=== PATIENT | female | born 1975 | race Caucasian/White ===

== ENCOUNTER 2016-11-29 23:50 | Emergency (ER) | payer OTHER ==
[2016-11-29 23:54] VITALS: BP 107/58; PULSE 76; TEMP 97.4; BMI 25.6
[2016-11-30 01:05] LABS: URINE APPEARANCE CLOUDY; URINE BILIRUBIN NEGATIVE (NEGATIVE); URINE BLOOD NEGATIVE (NEGATIVE); URINE COLOR YELLOW; URINE GLUCOSE (UA) NEGATIVE (NEGATIVE); URINE KETONE NEGATIVE (NEGATIVE); URINE NITRITE POSITIVE (NEGATIVE); URINE UROBILINOGEN 2.0 E.U/dl E.U./dl (0.2-1.0)
[2016-11-30] MEDS ORDERED: ACETAMINOPHEN 325 MG TABLET (FP) PO ONE (01:15)
[2016-11-30 01:22] LABS: URINE LEUK ESTERASE 3+ (NEGATIVE); URINE PROTEIN 2+ (NEGATIVE)
[2016-11-30 01:25] LABS: URINE BACTERIA MANY /hpf (NONE SEEN); URINE MUCUS FEW; URINE RBC 8 /hpf (0-3); URINE WBC 674 /hpf (3-5)
[2016-11-30] MEDS ORDERED: PHENAZOPYRIDINE HCL 100 MG TABLET (FP) PO ONE (01:42)
[2016-11-30] MEDS ORDERED: KETOROLAC TROMETHAMINE 30 MG/1 ML VIAL IM ONE (01:42)
[2016-11-30] MEDS ORDERED: LEVOFLOXACIN 500 MG TABLET (FP) PO ONE (01:43)
--- NOTE | 2016-11-30 01:50 | PDOC ---
History of Present Illness - General History Source: Patient Exam Limitations: No Limitations <SinaiUli - Last Filed: 11/30/16 01:52> - General History Source: Patient Exam Limitations: No Limitations - History of Present Illness Initial Comments: 11/30/16 01:54 The patient is a 41 year old female, with no significant past medical history, who presents to the emergency department with pelvic pain, frequency, dysuria and neck pain for 3 days. She notes that the pain has been worsening during this time period. She describes her pain as localized in the pelvic region slightly to the left. She reports that her neck pain is localized on the left side, ranging from mild to moderate, without radiation. She states that her pain is exacerbated when she turns her neck. The patient denies chest pain, shortness of breath, headache and dizziness. Denies fever, chills, nausea, vomit, diarrhea and constipation. Denies urgency and hematuria. Allergies: None Past surgical history: None reported Social history: Alcohol use occasionally. No tobacco or drug use reported <Jorge Hale - Last Filed: 11/30/16 01:55> - General Chief Complaint: Urinary Problem Stated Complaint: NECK PAIN Time Seen by Provider: 11/30/16 00:26 Past History - Reproductive History Is Patient Now?: No Cervical CA: No Dysfunctional Uterine Bleeding: No Ectopic : No Endometrial CA: No Polycystic Ovaries: No Tubal Ligation: No - Psycho/Social/Smoking Cessation Hx Anxiety: No Suicidal Ideation: No Smoking Status: No Smoking History: Never smoked Have you smoked in the past 12 months: No Number of Cigarettes Smoked Daily: 0 Information on smoking cessation initiated: No Hx Alcohol Use: No Drug/Substance Use Hx: No <Uli Rawls - Last Filed: 11/30/16 01:52> <Jorge Hale - Last Filed: 11/30/16 01:55> - Past Medical History Allergies/Adverse Reactions: Allergies Allergy/AdvReac Type Severity Reaction Status Date / Time No Known Allergies Allergy Verified 11/29/16 23:51 Home Medications: Ambulatory Orders Ciprofloxacin [Cipro -] 500 mg PO Q12H #14 tablet 11/30/16 Cyclobenzaprine HCl [Flexeril -] 10 mg PO TID PRN #21 tablet 11/30/16 Naproxen [Naprosyn -] 500 mg PO BID PRN #20 tablet 11/30/16 Phenazopyridine HCl [Pyridium] 200 mg PO Q8H PRN #5 tablet 11/30/16 Review of Systems - Review of Systems Able to Perform ROS?: Yes Comments:: 11/30/16 01:55 GENERAL/CONSTITUTIONAL: No fever or chills. No weakness. HEAD, EYES, EARS, NOSE AND THROAT: No change in vision. No ear pain or discharge. No sore throat. CARDIOVASCULAR: No chest pain or shortness of breath RESPIRATORY: No cough, wheezing, or hemoptysis. GASTROINTESTINAL: No nausea, vomiting, diarrhea or constipation. GENITOURINARY: +Pelvic pain, dysuria and frequency. MUSCULOSKELETAL: No joint or muscle swelling or pain. No neck or back pain. SKIN: No rash NEUROLOGIC: No headache, vertigo, loss of consciousness, or change in strength/ sensation. ENDOCRINE: No increased thirst. No abnormal weight change HEMATOLOGIC/LYMPHATIC: No anemia, easy bleeding, or history of blood clots. ALLERGIC/IMMUNOLOGIC: No hives or skin allergy. <Jorge Hale - Last Filed: 11/30/16 01:55> *Physical Exam - Vital Signs Last Vital Signs Temp Pulse Resp BP Pulse Ox 97.4 F L 76 14 107/58 98 11/29/16 23:52 11/29/16 23:52 11/29/16 23:52 11/29/16 23:52 11/29/16 23:52 <Uli Rawls - Last Filed: 11/30/16 01:52> - Vital Signs Last Vital Signs Temp Pulse Resp BP Pulse Ox 97.4 F L 76 14 107/58 98 11/29/16 23:52 11/29/16 23:52 11/29/16 23:52 11/29/16 23:52 11/29/16 23:52 - Physical Exam Comments: 11/30/16 01:55 GENERAL: Awake, alert, and fully oriented, in no acute distress HEAD: No signs of trauma, normocephalic, atraumatic EYES: PERRLA, EOMI, sclera anicteric, conjunctiva clear ENT: Auricles normal inspection, hearing grossly normal, nares patent, oropharynx clear without exudates. Moist mucosa NECK: Normal ROM, supple, no lymphadenopathy, JVD, or masses LUNGS: No distress, speaks full sentences, clear to auscultation bilaterally HEART: Regular rate and rhythm, normal S1 and S2, no murmurs, rubs or gallops, peripheral pulses normal and equal bilaterally. ABDOMEN: +Tender to the suprapubic. Soft, normoactive bowel sounds. No guarding , no rebound. No masses MUSCULOSKELETAL: + Left upper back point tenderness. EXTREMITIES: Normal inspection, Normal range of motion, no edema. No clubbing or cyanosis. NEUROLOGICAL: Cranial nerves II through XII grossly intact. Normal speech, normal gait, no focal sensorimotor deficits SKIN: Warm, Dry, normal turgor, no rashes or lesions noted. <Jorge Hale - Last Filed: 11/30/16 01:55> ED Treatment Course - ADDITIONAL ORDERS Additional order review: Laboratory Results 11/30/16 11/30/16 00:39 00:39 Urine Color Yellow Urine Appearance Cloudy Urine pH 7.0 D Ur Specific [place] 1.021 Urine Protein 2+ H D Urine Glucose (UA) Negative Urine Ketones Negative Urine Blood Negative Urine Nitrite Positive Urine Bilirubin Negative Urine Urobilinogen 2.0 e.u/dl H Ur Leukocyte Esterase 3+ H D Urine RBC 8 Urine WBC 674 Ur Epithelial Cells Rare Urine Bacteria Many Urine Mucus Few Urine HCG, Qual Negative - Medications Given in the ED: ED Medications Discontinued Medications Generic Name Dose Route Start Last Admin Trade Name Freq PRN Reason Stop Dose Admin Acetaminophen 650 mg 11/30/16 01:15 11/30/16 01:22 Tylenol - PO 11/30/16 01:16 650 mg ONCE ONE Administration <Uli Rawls - Last Filed: 11/30/16 01:52> - ADDITIONAL ORDERS Additional order review: Laboratory Results 11/30/16 11/30/16 00:39 00:39 Urine Color Yellow Urine Appearance Cloudy Urine pH 7.0 D Ur Specific [place] 1.021 Urine Protein 2+ H D Urine Glucose (UA) Negative Urine Ketones Negative Urine Blood Negative Urine Nitrite Positive Urine Bilirubin Negative Urine Urobilinogen 2.0 e.u/dl H Ur Leukocyte Esterase 3+ H D Urine RBC 8 Urine WBC 674 Ur Epithelial Cells Rare Urine Bacteria Many Urine Mucus Few Urine HCG, Qual Negative - Medications Given in the ED: ED Medications Discontinued Medications Generic Name Dose Route Start Last Admin Trade Name Freq PRN Reason Stop Dose Admin Acetaminophen 650 mg 11/30/16 01:15 11/30/16 01:22 Tylenol - PO 11/30/16 01:16 650 mg ONCE ONE Administration <Jorge Halee - Last Filed: 11/30/16 01:55> Medical Decision Making - Medical Decision Making 11/30/16 01:52 A portion of this note was documented by scribe services under my direction. I have reviewed the details of the note, within reason, and agree with the documentation with the following case summary and management plan written by me. Patient treated in the ED. Nursing notes are reviewed and incorporated into the medical decision-making. Vital signs reviewed. Peripheral IV access obtained by the nurse, laboratory studies are drawn and sent, reviewed and interpreted by myself. Vital Signs Temp Pulse Resp BP Pulse Ox 97.4 F L 76 14 107/58 98 11/29/16 23:52 11/29/16 23:52 11/29/16 23:52 11/29/16 23:52 11/29/16 23:52 41-year-old female with past medical history of cystitis presents to the emergency department for dysuria for 3 days. She reports suprapubic pain and dysuria or frequency. Denies fevers or chills. Reports his physical prior urinary tract infections. Denies any vaginal discharge. Patient likely has cystitis. Urinalysis demonstrates multiple wbc's and leuk esterase. Patient was on Bactrim for last 4 days but not seeing improvement. We'll switch to ciprofloxacin. Naproxen and Pyridium as needed. I instructed the patient the pyridium will likely make her urine orange. Incidentally, pt is also complaining of left upper back spasm for 3 days. On physical exam, this is musculoskeletal. Pain control and muscle relaxants. Stretching exercises given. Follow up with PMD. I discussed the physical exam findings, ancillary test results and final diagnoses with the patient. I answered all of the patient's questions. The patient was satisfied with the care received and felt comfortable with the discharge plan and treatment plan. The patient will call their primary care physician within 24 hours to arrange follow-up and will return to the Emergency Department with any new, persistant or worsening symptoms. <Uli Rawls - Last Filed: 11/30/16 01:52> *DC/Admit/Observation/Transfer - Discharge Dispostion Admit: No <Uli Rawls - Last Filed: 11/30/16 01:52> - Attestations Scribe Attestion: 11/30/16 01:55 Documentation prepared by Jorge Hale, acting as manager medical for Uli Rawls MD. <Jorge Hale - Last Filed: 11/30/16 01:55> Diagnosis at time of Disposition: Back spasm UTI (urinary tract infection) Qualifiers: Urinary tract infection type: site unspecified Hematuria presence: without hematuria Qualified Code(s): N39.0 - Urinary tract infection, site not specified - Discharge Dispostion Disposition: HOME Condition at time of disposition: Improved - Prescriptions Prescriptions: Ciprofloxacin [Cipro -] 500 mg PO Q12H #14 tablet Cyclobenzaprine HCl [Flexeril -] 10 mg PO TID PRN #21 tablet PRN Reason: Muscle relaxant Naproxen [Naprosyn -] 500 mg PO BID PRN #20 tablet PRN Reason: Pain Phenazopyridine HCl [Pyridium] 200 mg PO Q8H PRN #5 tablet PRN Reason: Bladder Pain - Referrals Referrals: James Kessler MD., MD [Staff Physician] - - Patient Instructions Printed Discharge Instructions: DI for Urinary Tract Infection (UTI), DI for Back Spasm Additional Instructions: Take 500 mg naproxen every 12 hours as needed for back pain. For additional relief, take a tablet of flexeril every 8 hours as needed. This medication will likely NOT take away all of your pain but will help take the edge away. It will likely take a couple more days before it gets better. Do not drive while on flexeril as flexeril can make you dizzy. Please take the ciprofloxacin every 12 hours for the next 7 days. You may take pyridium as prescribed as needed for pain relief for your bladder. This medication may make your urine and secretions orange or red. This is a side effect of the medicine. Please make an appointment with a urologist.
[2016-11-30] MEDS ORDERED: PHENAZOPYRIDINE HCL 100 MG TABLET (FP) ONE ×2 (01:55→02:03)
[2016-11-30] MEDS ORDERED: LEVOFLOXACIN 500 MG TABLET (FP) ONE ×2 (01:55→02:03)
[2016-11-30] MEDS ORDERED: KETOROLAC TROMETHAMINE 30 MG/1 ML VIAL ONE ×2 (01:56→02:03)
== END 2016-11-30 02:02 | disposition home or self-care (01) ==
LOC: JER 23:50
PROC: 3E0233Z Introduction of Anti-inflammatory into Muscle, Percutaneous Approach (ICD-10-PCS; principal; 2016-11-29)
DX: N39.0 Urinary tract infection, site not specified (principal); M62.830 Muscle spasm of back
CPT/HCPCS: 81003; 81015; 84703; 87086; 87186; 99282-25

== ENCOUNTER 2017-03-02 02:27 | Observation (INO) | payer SELFPAY ==
--- NOTE | 2017-03-02 02:56 | PDOC ---
History of Present Illness - General Chief Complaint: Vaginal Bleeding Stated Complaint: VAGINAL BLEEDING,PAIN Time Seen by Provider: 03/02/17 02:37 - History of Present Illness Initial Comments: 03/02/17 06:39 CHIEF COMPLAINT: vaginal bleeding HISTORY OF PRESENT ILLNESS: 41 yo A4 s/p bladder tack presents to ED with vaginal bleeding and cramping x 2 days. Patient states she had a period on for approximately 3 days, and then 5 days ago she started having a little spotting. Yesterday she started having abdominal pain "that felt like contractions" and today she began having "a lot of bleeding" and reports the bleeding is more than one soaked pad an hour. Her pain is to her lower abdomen and is 10/10. She denies any fever, chills, nausea, vomiting, diarrhea or urinary symptoms. Her last bowel movement was yesterday. She is sexually active with one partner. No recent travel or sick contacts. PAST MEDICAL HISTORY: as per HPI FAMILY HISTORY: Denies SOCIAL HISTORY: Denies tobacco, alcohol, illicit drug use. SURGICAL HISTORY: , bladder tack ALLERGIES: No known drug allergies REVIEW OF SYSTEMS General/Constitutional: Denies fever or chills. Denies weakness, weight change. HEENT: Denies change in vision. Denies ear pain or discharge. Denies sore throat. Cardiovascular: Denies chest pain or shortness of breath. Respiratory: Denies cough, wheezing, or hemoptysis. Gastrointestinal: Denies nausea, vomiting, diarrhea or constipation. Denies rectal bleeding. Genitourinary: Vaginal bleeding x 5 days. Denies dysuria, frequency, hematuria. Musculoskeletal: Denies joint or muscle swelling or pain. Denies neck or back pain. Skin and breasts: Denies rash or easy bruising. PHYSICAL EXAM General Appearance: Well-appearing, appropriately dressed. No apparent distress. HEENT: EOMI, PERRLA, normal ENT inspection, normal voice, TMs normal, pharynx normal. No conjunctival pallor. No photophobia, scleral icterus. Respiratory/Chest: Lungs CTAB. Cardiovascular: RRR. S1, S2. Gastrointestinal/Abdominal: Normal bowel sounds. Abdomen soft, non-distended. No tenderness or rebound tenderness. No organomegaly, pulsatile mass, guarding , hernia, hepatomegaly, splenomegaly. Pelvic: Mild swelling to R labia, no lesions to external genitalia. Vaginal vault with copious bloody discharge Cervical motion tenderness, + chandelier's sign. Uterus is nontender and normal in size. Musculoskeletal/Extremities: Normal inspection. FROM of all extremities, normal capillary refill. Pelvis Stable. No CVA tenderness. No tenderness to extremities, pedal edema, swelling, erythema or deformity. Integumentary: Appropriate color, dry, warm. No cyanosis, erythema, jaundice or rash Neurologic: vocational rehabilitation technician II-XII intact. Fully oriented, alert. Appropriate mood/affect. Motor strength 5/5. No appreciable EOM palsy, facial droop or sensory deficit. 03/02/17 07:01 Past History - Past Medical History Allergies/Adverse Reactions: Allergies Allergy/AdvReac Type Severity Reaction Status Date / Time No Known Allergies Allergy Verified 03/02/17 02:42 Home Medications: Ambulatory Orders Cyclobenzaprine HCl [Flexeril -] 10 mg PO TID PRN #21 tablet 11/30/16 - Reproductive History Cervical CA: No Dysfunctional Uterine Bleeding: No Ectopic : No Endometrial CA: No Polycystic Ovaries: No Tubal Ligation: No - Psycho/Social/Smoking Cessation Hx Anxiety: No Suicidal Ideation: No Smoking Status: No Smoking History: Never smoked Have you smoked in the past 12 months: No Number of Cigarettes Smoked Daily: 0 Information on smoking cessation initiated: No Hx Alcohol Use: No Drug/Substance Use Hx: No *Physical Exam - Vital Signs Last Vital Signs Temp Pulse Resp BP Pulse Ox 97.5 F L 75 14 145/73 100 03/02/17 02:42 03/02/17 02:42 03/02/17 02:42 03/02/17 02:42 03/02/17 02:42 ED Treatment Course - LABORATORY CBC & Chemistry Diagram: 03/02/17 03:03 03/02/17 04:00 Medical Decision Making - Medical Decision Making 03/02/17 06:54 41 yo A4 s/p bladder tack presents to ED with vaginal bleeding and cramping x 2 days. DDx includes but is not limited to: PID, retained product of , menstruation/menorrhagia, ectopic , ruptured cyst -CBC, CMP, T&S -Urine preg -Ct/GC -TV Ultrasound Urine positive. Labs otherwise unremarkable. -beta hCG beta hC Ultrasound results: The uterus is anteverted. An irregular gestational sac is seen in the lower uterine segment and in the endocervical canal. The endometrium is thickened to 1.6 cm in diameter. No yolk sac or pole is seen. The right ovary measures 2.5 x 2.7 x 2.2 cm and contains a 1.8 and a 1.2 cm cyst. Normal arterial flow seen on color Doppler images. The left ovary is not visualized. Impression: Thickened endometrium. Gestational sac appears irregular and elongated in the lower uterine segment and endocervical canal. No pole or yolk sac seen. These findings suggest failed /impending spontaneous . Ovarian cysts noted on the right otherwise normal appearance the right ovary with normal vascular flow. Left ovary not seen. Read by: Angel Finney M.D. OBGYN consult placed. 03/02/17 06:56 Case discussed in detail with oncoming emergency provider including history, physical exam and ancillary studies. In brief, this patient is being seen in the ED for a chief complaint of: I have completed the initial assessment interview note and have ordered the following labs: CBC, CMP, beta hcg, UA, Ucx I have reviewed the following results: all Pending results: awaiting TERRAZZO WORKER APPRENTICE consult Please call the PCP: Randi Plan for disposition as follows: pending Oncoming NPA Breanne has assumed care for the patient and will complete the evaluation and treatment. 03/02/17 07:25 *DC/Admit/Observation/Transfer Diagnosis at time of Disposition: Miscarriage - Discharge Dispostion Admit: Yes - Referrals - Patient Instructions Additional Instructions: You MUST return in 2 days to this ER or go to OBGYN for repeat blood test. If you experience worsening bleeding, dizziness, fever, chills, nausea, vomiting, diarrhea, or any new or worsening symptoms, please return to the ER.
[2017-03-02 03:20] LABS: BASOPHIL 0.5 % (0-2.0); EOSINOPHIL 0.2 % (0-4.5); MCH 29.5 pg (25.7-33.7); MCHC 33.3 g/dl (32.0-36.0); MEAN CELL VOLUME 88.7 fl (80-96); MEAN PLT VOLUME 9.1 fl (7.5-11.1); NEUTROPHILS 83.5 % (42.8-82.8); PLATELET COUNT 214 K/MM3 (134-434); RDW 14.4 % (11.6-15.6); WHITE BLOOD COUNT 9.2 K/mm3 (4.0-10.0)
[2017-03-02 03:29] LABS: INR 1.04 (0.82-1.09); PROTHROMBIN TIME (PATIENT) 11.4 SEC (9.98-11.88)
[2017-03-02 04:34] LABS: ALBUMIN 3.5 g/dl (3.4-5.0); ANION GAP 7 (8-16); BILIRUBIN,TOTAL 0.2 mg/dL (0.2-1.0); CALCIUM 7.7 mg/dL (8.5-10.1); CO2 25 mmol/L (21-32); CREATININE 0.6 mg/dL (0.55-1.02); GLUCOSE,RANDOM 109 mg/dL (74-106); SGOT/AST 14 U/L (15-37); SGPT/ALT 20 U/L (12-78); TOT PROT 6.5 g/dl (6.4-8.2)
[2017-03-02 04:36] LABS: ALK PHOS 64 U/L (45-117)
[2017-03-02 07:14] LABS: URINE APPEARANCE CLOUDY; URINE BILIRUBIN NEGATIVE (NEGATIVE); URINE COLOR AMBER; URINE GLUCOSE (UA) NEGATIVE (NEGATIVE); URINE KETONE NEGATIVE (NEGATIVE); URINE LEUK ESTERASE NEGATIVE (NEGATIVE); URINE NITRITE POSITIVE (NEGATIVE); URINE UROBILINOGEN 4.0 E.U/dl E.U./dl (0.2-1.0)
[2017-03-02 07:19] LABS: URINE BLOOD 3+ (NEGATIVE); URINE PROTEIN 2+ (NEGATIVE)
[2017-03-02 07:22] LABS: URINE RBC 6724 /hpf (0-3)
[2017-03-02] MEDS ORDERED: D5W-LR W/ 20 UNITS OXYTOCIN 1,000 ML IV SCH (07:45)
[2017-03-02] MEDS ORDERED: OXYTOCIN 10 UNITS/ML VIAL ONE (08:01)
[2017-03-02 08:33] VITALS: PULSE 78
[2017-03-02 10:04] VITALS: BP 98/51; TEMP 98.4; BMI 26.9
--- NOTE | 2017-03-02 12:49 | HP ---
Past Medical History - Primary Care Physician PCP:: Kamille Martin - Admission Chief Complaint: 41 YRS , C/O HEAVY VAGINAL BLEEDING & CRAMPS ADMITTED FROM ER FOR. 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 QBHCG 678.4 sono reported asut 9.7x5.4 adnexa normal, free fluid versus deformed gestational sac in in cervical canal History Source: Patient - Past Medical History JAVA TECH LEAD: No: CVA, Migraine, Seizure Cardiovascular: No: Aortic Insufficiency, Murmur Pulmonary: No: Asthma Gastrointestinal: No: Constipation Hepatobiliary: No: Choledocholithiasis Renal/: Yes: Other (h/o stress incontinence). No: UTI Reproductive: Yes: Other (last pap 1 yr ago [facility], , last visit with dairy processing equipment operator 6 months ago in [place]. h/o abn pap in 1997, colposcopy was done, following that she always have normal periods) ...: 8 ...Para: 3 (1993 , 1997, , 2011( c/section due to bladder surgery)) ...Term: 3 ...Induced : 4 ...LMP: 01/18/17 ... Weeks Gestation by Dates: 7 Infectious Disease: Yes: Other (declines) Psych: No: Addictions, Anxiety, Bipolar, Depression, Panic - Past Surgical History Past Surgical History: Yes: (2011) Hx Myomectomy: No Hx Transabdominal Cerclage: No Additional Surgical History: bladder surgery ? sling placed in 2009 for stress incontinece - Smoking History Smoking history: Never smoked Have you smoked in the past 12 months: No Aproximately how many cigarettes per day: 0 - Alcohol/Substance Use Hx Alcohol Use: No History of Substance Use: reports: None Home Medications - Allergies Allergies/Adverse Reactions: Allergies Allergy/AdvReac Type Severity Reaction Status Date / Time No Known Allergies Allergy Verified 03/02/17 02:42 - Home Medications Home Medications: Ambulatory Orders Cyclobenzaprine HCl [Flexeril -] 10 mg PO TID PRN #21 tablet 11/30/16 Physical Exam-MAINTENANCE TECHNICIAN 3RD SHIFT Vital Signs: Vital Signs Temperature 98.4 F 03/02/17 10:00 Pulse Rate 78 03/02/17 10:00 Respiratory Rate 18 03/02/17 10:00 Blood Pressure 98/51 03/02/17 10:00 O2 Sat by Pulse Oximetry (%) 98 03/02/17 10:00 Constitutional: Yes: Well Nourished Eyes: Yes: WNL HENT: Yes: WNL Neck: Yes: WNL Cardiovascular: Yes: WNL Respiratory: Yes: WNL, Regular Gastrointestinal: Yes: WNL, Normal Bowel Sounds, Soft Renal/: Yes: WNL. No: CVA Tenderness - Left, CVA Tenderness - Right Pelvis: Yes: WNL External Genitalia: Yes: Normal Internal Exam Deferred: Yes Vaginal Exam: Yes: Bleeding Cervix: Yes: Normal, Bleeding, Other (cx close). No: Cerv Motion Tenderness Uterus: Yes: Anteverted, Enlarged (6 weeks size), Soft, Tender Adnexa: Normal: Bilateral, Not Palpable: Bilateral Breast(s): Yes: WNL Musculoskeletal: Yes: WNL Extremities: Yes: WNL Edema: No Integumentary: Yes: WNL Wound/Incision: Yes: Clean/Dry Neurological: Yes: WNL ...Motor Strength: WNL Psychiatric: Yes: WNL, Alert, Oriented Labs: Laboratory Tests 03/02/17 03/02/17 03/02/17 03:03 03:03 04:00 WBC 9.2 Hgb 12.2 Hct 36.6 Plt Count 214 Neutrophils % 83.5 H Lymphocytes % 12.1 Sodium 143 Potassium 4.3 Chloride 111 H Carbon Dioxide 25 Anion Gap 7 L BUN 16 Random Glucose 109 H AST 14 L ALT 20 Beta HCG, Quant Urine Protein Blood Type AB POSITIVE 03/02/17 03/02/17 04:00 07:05 WBC Hgb Hct Plt Count Neutrophils % Lymphocytes % Sodium Potassium Chloride Carbon Dioxide Anion Gap BUN Random Glucose AST ALT Beta HCG, Quant 678.4 Urine Protein 2+ H Blood Type Problem List - Problem (1) Incomplete Code(s): O03.4 - INCOMPLETE SPONTANEOUS WITHOUT COMPLICATION Assessment/Plan 41 yrs , 7 weeks gestation, incmp ab for suction d&c . discuss r/b/a of d&c , possible perforation, may not be any tissuse obtained , or coservative , possible continued bleeding for longer time pain cramps, follow with quant bhcg pt declines d&c , will like to do conservative approach , will f/u with bhcg. discharge today
[2017-03-02] MEDS ORDERED: IBUPROFEN 600 MG TABLET (FP) PO PRN (13:10)
[2017-03-02] MEDS ORDERED: METHYLERGONOVINE MALEATE 0.2 MG TABLET (FP) PO ONE (13:15)
== END 2017-03-02 15:26 | disposition home or self-care (01) ==
LOC: JER 02:27 → JERBED 07:35 → J6S 09:00
PROVIDERS: ADMIT Obstetrics & Gynecology; ATTEND Obstetrics & Gynecology
PROC: 3E0233Z Introduction of Anti-inflammatory into Muscle, Percutaneous Approach (ICD-10-PCS; principal; 2017-03-02)
DX: O03.4 Incomplete spontaneous abortion without complication (principal)
CPT/HCPCS: 36415; 76817-TC; 80053; 81003; 81015; 84702; 84703; 85025; 85610; 86850; 86900; 86901; 87086; 87186; 87491; 87591; 99285-25; G0378

== ENCOUNTER 2018-06-29 02:05 | Emergency (ER) | payer SELFPAY ==
--- NOTE | 2018-06-29 02:39 | PDOC ---
History of Present Illness - General History Source: Patient Exam Limitations: No Limitations - History of Present Illness Initial Comments: 06/29/18 04:34 The patient is a 43 year old female with no significant PMH who presents to the emergency department with a UTI for about 4 days. The patient also reports some breakout on her lower extremities of which are painful and red. The patient reports that she gets these breakouts every 4 months. She reports some swelling and pain in her labia majora. She states that she waxes every 3 weeks. She denies more than one sexual partner. She denies any other symptoms. She denies fever, chills, nausea, vomit, diarrhea ,constipation, or urinary symptoms. She denies chest pain, shortness of breath, headache and dizziness. The patient denies any other complaints. <Alyse Middleton - Last Filed: 06/29/18 04:33> <Leesa Velez - Last Filed: 06/29/18 05:19> - General Stated Complaint: URINARY TRACT INFECTION Time Seen by Provider: 06/29/18 02:12 Past History <lAyse Middleton - Last Filed: 06/29/18 04:33> - Reproductive History Cervical CA: No Dysfunctional Uterine Bleeding: No Ectopic : No Endometrial CA: No Polycystic Ovaries: No Tubal Ligation: No - Suicide/Smoking/Psychosocial Hx Smoking Status: No Smoking History: Never smoked Have you smoked in the past 12 months: No Number of Cigarettes Smoked Daily: 0 Hx Alcohol Use: No Drug/Substance Use Hx: No Substance Use Type: None Hx Substance Use Treatment: No <Leesa Velez - Last Filed: 06/29/18 05:19> - Past Medical History Allergies/Adverse Reactions: Allergies Allergy/AdvReac Type Severity Reaction Status Date / Time No Known Allergies Allergy Verified 06/29/18 03:10 Home Medications: Ambulatory Orders Cyclobenzaprine HCl [Flexeril -] 10 mg PO TID PRN #21 tablet 11/30/16 Ibuprofen [Motrin -] 600 mg PO Q4H PRN #20 tablet 03/02/17 Methylergonovine Maleate [Methergine -] 0.2 mg PO ASDIR #10 tablet 03/02/17 Cephalexin Monohydrate [Keflex -] 500 mg PO Q8H #21 capsule 06/29/18 Review of Systems - Review of Systems Able to Perform ROS?: Yes Comments:: 06/29/18 04:34 GENERAL/CONSTITUTIONAL: No fever or chills. No weakness. HEAD, EYES, EARS, NOSE AND THROAT: No change in vision. No ear pain or discharge. No sore throat. CARDIOVASCULAR: No chest pain or shortness of breath. RESPIRATORY: No cough, wheezing, or hemoptysis. GASTROINTESTINAL: No nausea, vomiting, diarrhea or constipation. GENITOURINARY: (+)vaginal labia swelling. No dysuria, frequency, or change in urination. MUSCULOSKELETAL: No joint or muscle swelling or pain. No neck or back pain. SKIN:(+)itchy, red breakout on lower extremities. No rash NEUROLOGIC: No headache, vertigo, loss of consciousness, or change in strength/ sensation. ENDOCRINE: No increased thirst. No abnormal weight change. HEMATOLOGIC/LYMPHATIC: No anemia, easy bleeding, or history of blood clots. ALLERGIC/IMMUNOLOGIC: No hives or skin allergy. <Alyse Middleton - Last Filed: 06/29/18 04:33> *Physical Exam - Vital Signs Last Vital Signs Temp Pulse Resp BP Pulse Ox 98.1 F 77 18 110/81 98 06/29/18 02:10 06/29/18 02:10 06/29/18 02:10 06/29/18 02:10 06/29/18 02:10 - Physical Exam Comments: 06/29/18 04:34 GENERAL: Awake, alert, and fully oriented, in no acute distress HEAD: No signs of trauma EYES: PERRLA, EOMI, sclera anicteric, conjunctiva clear ENT: Auricles normal inspection, hearing grossly normal, nares patent, oropharynx clear without exudates. Moist mucosa NECK: Normal ROM, supple, no lymphadenopathy, JVD, or masses LUNGS: Breath sounds equal, clear to auscultation bilaterally. No wheezes, and no crackles HEART: Regular rate and rhythm, normal S1 and S2, no murmurs, rubs or gallops ABDOMEN: Soft, nontender, normoactive bowel sounds. No guarding, no rebound. No masses EXTREMITIES: Normal range of motion, no edema. No clubbing or cyanosis. No cords, erythema, or tenderness NEUROLOGICAL: Cranial nerves II through XII grossly intact. Normal speech, normal gait SKIN:(+)Right labia majora swelling. Warm, Dry, normal turgor, no rashes or lesions noted. <Alyse Middleton - Last Filed: 06/29/18 04:33> ED Treatment Course - ADDITIONAL ORDERS Additional order review: Laboratory Results 06/29/18 04:09 Urine Color Yellow Urine Appearance Cloudy Urine pH 7.0 D Ur Specific [place] 1.020 Urine Protein Negative Urine Glucose (UA) Negative Urine Ketones Negative Urine Blood Negative Urine Nitrite Positive Urine Bilirubin Negative Urine Urobilinogen Negative Ur Leukocyte Esterase 1+ H Urine WBC (Auto) 18 Urine RBC (Auto) 1 Ur Epithelial Cells Few Calcium Oxalate Crystal Rare Urine Bacteria Many Urine Yeast Moderate Urine HCG, Qual Negative - Medications Given in the ED: ED Medications Discontinued Medications Generic Name Dose Route Start Last Admin Trade Name Freq PRN Reason Stop Dose Admin Cephalexin HCl 500 mg 06/29/18 04:22 06/29/18 04:23 Keflex - PO 06/29/18 04:23 500 mg ONCE ONE Administration <Alyse Middleton - Last Filed: 06/29/18 04:33> Medical Decision Making - Medical Decision Making 06/29/18 05:18 We will treat her UTI and her ingrown hair and her cellulitis of the leg with keflex. Return if dysuria gets worse or if the cellulitis gets worse. <Leesa Velez - Last Filed: 06/29/18 05:19> *DC/Admit/Observation/Transfer - Attestations Scribe Attestion: 06/29/18 04:34 Documentation prepared by Alyse Middleton, acting as medical legal investigator for Leesa Velez MD. <Alyse Middleton - Last Filed: 06/29/18 04:33> - Discharge Dispostion Decision to Admit order: No <Leesa Veelz - Last Filed: 06/29/18 05:19> Diagnosis at time of Disposition: UTI (urinary tract infection), Ingrown hair - Discharge Dispostion Disposition: HOME Condition at time of disposition: Improved - Prescriptions Prescriptions: Cephalexin Monohydrate [Keflex -] 500 mg PO Q8H #21 capsule - Patient Instructions Printed Discharge Instructions: Urinary Tract Infection, DI for Folliculitis
[2018-06-29 03:10] VITALS: BP 110/81; PULSE 77; TEMP 98.1; BMI 25.6
[2018-06-29 04:15] LABS: URINE APPEARANCE CLOUDY; URINE BILIRUBIN NEGATIVE (<2.0 mg/dL); URINE COLOR YELLOW; URINE GLUCOSE (UA) NEGATIVE (NEGATIVE); URINE KETONE NEGATIVE (NEGATIVE); URINE NITRITE POSITIVE (NEGATIVE); URINE PROTEIN NEGATIVE (NEGATIVE); URINE UROBILINOGEN NEGATIVE mg/dL (0.2-1.0)
[2018-06-29 04:16] LABS: URINE LEUK ESTERASE 1+ (NEGATIVE)
[2018-06-29 04:17] LABS: HCG,QUALITATIVE URINE Negative
[2018-06-29 04:19] LABS: CALCIUM OXALATE CRYSTALS RARE /hpf (NONE SEEN); EPI CELLS FEW /HPF (FEW); URINE BACTERIA MANY /hpf (NONE SEEN); YEAST MODERATE
[2018-06-29] MEDS ORDERED: CEPHALEXIN MONOHYDRATE 500 MG CAPSULE (UD) ONE (04:21)
[2018-06-29] MEDS ORDERED: CEPHALEXIN MONOHYDRATE 500 MG CAPSULE (UD) PO ONE (04:22)
== END 2018-06-29 04:25 | disposition home or self-care (01) ==
LOC: JER 02:05
DX: N39.0 Urinary tract infection, site not specified (principal); L73.1 Pseudofolliculitis barbae; L03.116 Cellulitis of left lower limb; L03.115 Cellulitis of right lower limb
CPT/HCPCS: 81003; 81015; 84703; 87086; 87186; 99281-25

== ENCOUNTER 2022-11-20 22:45 | Emergency (ER) | payer OTHER ==
[2022-11-20 22:51] VITALS: BP 114/77; PULSE 77; RESP 17; TEMP 97.9; BMI 30.2
[2022-11-20] MEDS ORDERED: IBUPROFEN 600 MG TABLET (FP) PO ONE ×2 (23:22→23:34)
[2022-11-20] MEDS ORDERED: ACETAMINOPHEN 500 MG TABLET (FP) PO ONE (23:22)
[2022-11-20] MEDS ORDERED: ACETAMINOPHEN 500 MG TABLET (FP) ONE (23:34)
== END 2022-11-21 00:20 | disposition home or self-care (01) ==
LOC: JERFT 22:45
DX: M79.671 Pain in right foot (principal)
CPT/HCPCS: 73630-TC-RT-FY; 99283-25

== ENCOUNTER 2023-04-19 00:31 | Emergency (ER) | payer OTHER ==
[2023-04-19 00:43] VITALS: RESP 18; BMI 27.8
[2023-04-19] MEDS ORDERED: ACETAMINOPHEN 1000 MG/100 ML BAG IVPB ONE (01:41)
[2023-04-19 03:12] LABS: ALBUMIN 4.1 g/dl (3.4-5.0); BLOOD UREA NITROGEN 17.7 mg/dL (7-18)
[2023-04-19 03:16] LABS: CREATININE 0.6 mg/dL (0.55-1.3)
[2023-04-19 03:18] LABS: BILIRUBIN,TOTAL 0.4 mg/dL (0.2-1); TOT PROT 8.1 g/dl (6.4-8.2)
[2023-04-19 04:01] LABS: BASO % 0.6 % (0-2.0); EOS % 1.1 % (0-4.5); HEMATOCRIT 33.8 % (32.4-45.2); HEMOGLOBIN 10.8 GM/dL (10.7-15.3); LYMPH % 28.6 % (8-40); MCH 25.9 pg (25.7-33.7); MEAN PLT VOLUME 8.5 fl (7.5-11.1); MONO % 8.1 % (3.8-10.2); NEUT % 61.6 % (42.8-82.8); PLATELET COUNT 246 10^3/uL (134-434); RBC 4.18 M/mm3 (3.60-5.2); RDW 15.9 % (11.6-15.6); WHITE BLOOD COUNT 6.7 K/mm3 (4.0-10.0)
[2023-04-19 04:49] VITALS: BP 93/54; PULSE 90; TEMP 97.9
== END 2023-04-19 05:31 | disposition home or self-care (01) ==
LOC: JER 00:31
PROC: 3E033NZ Introduction of Analgesics, Hypnotics, Sedatives into Peripheral Vein, Percutaneous Approach (ICD-10-PCS; principal; 2023-04-19)
DX: R07.9 Chest pain, unspecified (principal); N63.0 Unspecified lump in unspecified breast; N64.4 Mastodynia
CPT/HCPCS: 36415; 71275-TC; 80053; 84484; 84703; 85025; 93005; 93010; 99285-25